=== PATIENT | female | born 2000 | race Two or more races ===

== ENCOUNTER 2024-07-15 11:12 | Emergency (ER) | payer MEDICAID, SELFPAY ==
[2024-07-15 11:39] VITALS: BP 138/70; PULSE 115; RESP 18; TEMP 36.8; O2SAT 97; BMI 45.9
--- NOTE | 2024-07-15 11:45 | CT_ITS ---
WS: [id number] CT ABDOMEN AND PELVIS WITH CONTRAST HISTORY: Abdominal pain with nausea, vomiting and diarrhea. TECHNIQUE: Imaging performed of the abdomen and pelvis with IV contrast. Single phase imaging of the abdomen. Coronal and sagittal reformats are submitted. All CT scans at [facility] use at [address] one of these dose optimization techniques: automated exposure control; mA and/or kV adjustment per patient size (includes targeted exams where dose is matched to clinical indication); or iterative re construction. IV CONTRAST: Omnipaque 350; 100 mL IV. Oral contrast: No DLP: 1348.43 mGy.cm COMPARISON: None available. Lower thorax: Lung bases are clear. Heart is normal size. No hiatal hernia. Liver/biliary system: Moderately enlarged liver with diffuse hepatic steatosis. Gallbladder: Normal. No gallstones or wall thickening. No pericholecystic fluid. Pancreas: Normal size pancreas and pancreatic duct. No adjacent inflammation. Spleen: Normal size spleen. No mass or infarct. Adrenal glands: Normal. Right kidney: Normal. Left kidney: Normal. Aorta: Normal. Lymphadenopathy: None. Free fluid: Small amount of free fluid in the pelvis. GI tract: Normal small bowel and stomach. Normal appendix. No colon obstruction. Abdominal wall: Unremarkable abdominal wall. No hernia. Pelvis: Small amount of free fluid in the pelvis. The uterus is midline and normal size. The RIGHT ov amish is enlarged with a peripherally enhancing crenulated corpus luteal cyst measuring 1.7 cm. There i s a soft tissue nodule noted deep within the pelvis in the presacral region measuring 2.3 x 1.7 cm of uncertain etiology. This is posterior to the rectum in the perirectal fat. This will need to be furt her evaluated. Possible etiologies are endometrioma or malignant deposit. No history of any prior mal ignancy this is not likely malignant. Bones: Unremarkable. CT/CT abdomen pelvis w con* [id number] IMPRESSION: 1. Normal appendix. 2. Mildly enlarged RIGHT ovary with collapsing, crenulated corpus luteal cyst. 3. There is a small amount of free fluid in the pelvis which is probably relat ed to a hemorrhagic cyst from the RIGHT ovary. 4. Hepatic steatosis. 5. There is a soft tissue nodule in the presacral soft tissues measuring 2.3 x 1.7 cm of uncertain etiology. No connection to the rectum is evident. Eric bear would include endometrioma or neoplastic deposit. No history of malignancy metastatic site or neoplastic deposit is not likely. Consider 3-month CT abdom en and pelvis follow-up with IV and oral contrast. If this nodule persists MRI may be necessary.
--- NOTE | 2024-07-15 11:49 | ED_ITS ---
HPI - Nausea/Vomiting/Diarrhea 2 General: Chief complaint: Nausea/Vomiting/Diarrhea Stated complaint: n,v,d Time Seen by Provider: 07/15/24 11:31 Source: patient Mode of arrival: ambulatory Limitations: no limitations History of Present Illness: 23-year-old female states that she was l ifting on Friday at work and felt a pulling sensation in her lower abdomen states that since she been having lower abdominal pain she has also had some vomiting and diarrhea patient denies any fevers she denies any worsening improving factors. Rates her pain a 6 out of 10 currently Associated nausea: Yes Associated symtoms: Reports nausea; Denies chest pain, dysuria or headache(s) Related Data Previous Rx's Medication Instructions Recorded hydrocodone 5 mg-acetaminophen 325 1 tab PO Q6H PRN pain #14 tabs 07/15/24 mg tablet ondansetron 4 mg disintegrating 4 mg PO Q6H PRN nausea and 07/15/24 tablet vomiting #14 tabs Allergies Allergy/AdvReac Type Severity Reaction Status Date / Time No Known Allergies Allergy Verified 07/15/24 11:42 Review of Systems 2 Const: Denies: fever(s), chills, body aches or change in appetite ENMT: Denies: throat pain or dental pain Card: Denies: chest pain Resp: Denies: dyspnea GI: Reports: abdominal pain, nausea, vomiting and diarrhea : Denies: dysuria Musc: Denies: neck pain or back pain Skin/Breast: Denies: rash Neuro: Denies: headache(s) Physical Exam 2 Const: COMMON NORMALS: no acute distress, patient oriented x3 and healthy appearing HENMT: COMMON NORMALS: normocephalic and atraumatic HEAD & SCALP: n ormocephalic and atraumatic Eye: COMMON NORMALS: conjunctivae normal CONJUNCTIVA: Yes conjunctivae normal Neck/C-Spine: COMMON NORMALS: full ROM and supple Chest: COMMONS NORMALS: normal inspection of the chest Resp: COMMON NORMALS: normal respiratory effort Cardio: COMMON NORMALS: regular rate, regular rhythm and No murmurs present (Cardio) RATE: regular rate RHYTHM: regular rhythm GI: COMMON NORMALS: Normal to inspection, nondistended, normoactive bowel sounds present, Soft to palpation and no masses PALPATION: Yes Soft to palpation OTHER: Lower abdominal tenderness noted Extremity: COMMON NORMALS: normal to inspection and full ROM Neuro: COMMON NORMALS: patient oriented x3, moves all extremities and no focal motor deficits Psych: COMMON NORMALS: mental status grossly normal, Normal thought process present and cooperative THOUGHT PROCESS: Normal thought process present Skin: COMMON NORMALS: no rashes or lesions noted and no wounds GENERAL SKIN EXAM: no rashes or lesions noted Course 2 Vital Signs: Vital signs: Vital Signs Temperature 98.3 F 07/15/24 11:39 Pulse Rate 95 07/15/24 14:19 Respiratory Rate 16 07/15/24 14:19 Blood Pressure 116/97 07/15/24 14:19 Pulse Oximetry 96 07/15/24 14:19 Oxygen Delivery Me thod Room Air 07/15/24 14:19 MDM - Nausea/Vomiting/Diarrhea Medical Decision Making Patient presents here with abdominal pain I did go over the findings with her ovarian cyst and a possible mass we will get her follow-up with OB she is much improved no pain currently no signs of ovarian torsion she is to follow-up with OB and return if worsening she understands agrees to plan Medical Records I reviewed the patient's medical records. Lab Data I reviewed the patient's lab results. 07/15/24 11:44 07/15/24 11:44 Radiology Impressions Abdomen/Pelvis CT 07/15/24 11:45 IMPRESSION: 1. Normal appendix. 2. Mildly enlarged RIGHT ovary with collapsing, crenulated corpus luteal cyst. 3. There is a small amount of free fluid in the pelvis which is probably related to a hemorrhagic cyst from the RIGHT ovary. 4. Hepatic steatosis. 5. There is a soft tissue nodule in the presacral soft tissues measuring 2.3 x 1.7 cm of uncertain etiology. No connection to the rectum is evident. Differential would include endometrioma or neoplastic deposit. No history of malignancy metastatic site or neoplastic deposit is not likely. Consider 3-month CT abdomen and pelvis follow-up with IV and oral contrast. If this nodule persists MRI may be necessary. Laboratory Results WBC 7.79 10^3/uL (3.29-11.43) 07/15/24 11:44 RBC 4.81 10^6/uL (3.85-5.65) 07/15/24 11:44 Hgb 15.00 g/dL (11.27-16.99) 07/15/24 11:44 Hct 44.4 % (36-47) 07/15/24 11:44 MCV 92.3 fl (85-98) 07/15/24 11:44 MCH 31.2 pg (27-33) 07/15/24 11:44 MCHC 33.8 g/dL (30-55) 07/15/24 11:44 RDW 12.8 % (12.1-15.1) 07/15/24 11:44 Plt Count 304 10^3/cmm (157-399) 07/15/24 11:44 MPV 9.3 fL (7.4-10.4) 07/15/24 11:44 Neut % (Auto) 72.9 % 07/15/24 11:44 Lymph % (Auto) 19.5 % 07/15/24 11:44 [place] % (Auto) 6.3 % 07/15/24 11:44 Eos % (Auto) 0.4 % 07/15/24 11:44 Baso % (Auto) 0.4 % 07/15/24 11:44 Neut # (Auto) 5.68 10^3/uL (1.8-7.7) 07/15/24 11:44 Lymph # (Auto) 1.5 10^3/uL (0.8-4.8) 07/15/24 11:44 [place] # (Auto) 0.5 10^3/uL (0.2-0.9) 07/15/24 11:44 Eos # (Auto) 0.0 10^3/uL (0.0-0.8) 07/15/24 11:44 Baso # (Auto) 0.0 10^3/uL (0.0-0.1) 07/15/24 11:44 Nucleated RBC % (auto) 0 % 07/15/24 11:44 Nucleated RBCs # 0.0 /100WBC 07/15/24 11:44 Sodium 135 mmol/L (136-145) L 07/15/24 11:44 Potassium 4.3 mmol/L (3.5-5.1) 07/15/24 11:44 Chloride 104 mmol/L (98-107) 07/15/24 11:44 Carbon Dioxide 19 mmol/L (22-29) L 07/15/24 11:44 Anion Gap 16.3 (5-19) 07/15/24 11:44 BUN 8 mg/dL (6-20) 07/15/24 11:44 Creatinine 0.6 mg/dL (0.5-0.9) 07/15/24 11:44 GFR Calculation 126.2 mL/min (90-130) 07/15/24 11:44 Glucose 99 mg/dL (65-115) 07/15/24 11:44 Calculated Osmolality 278 mOsm/kg (285-295) L 07/15/24 11:44 Calcium 9.5 mg/dL (8.5-10.5) 07/15/24 11:44 Total Bilirubin 0.5 mg/dL (0.15-1.2) 07/15/24 11:44 AST 73 U/L (0-32) H 07/15/24 11:44 ALT 79 U/L (0-33) H 07/15/24 11:44 Alkaline Phosphatase 113 U/L (35-105) H 07/15/24 11:44 Total Protein 8.0 g/dL (6.6-8.7) 07/15/24 11:44 Albumin 4.4 g/dL (3.5-5.2) 07/15/24 11:44 Globulin 3.6 g/dL (1.3-4.6) 07/15/24 11:44 Lipase 19 U/L (13-60) 07/15/24 11:44 HCG, Qual Negative (Negative) 07/15/24 11:44 Urine Color Yellow (Yellow) 07/15/24 12:24 Urine Appearance Cloudy (CLEAR) A 07/15/24 12:24 Urine pH 5.5 (5-7) 07/15/24 12:24 Ur Specific [place] 1.018 (1.005-1.030) 07/15/24 12:24 Urine Protein Negative (Negative) 07/15/24 12:24 Urine Glucose (UA) Negative (Normal) 07/15/24 12:24 Urine Ketones Negative (Negative) 07/15/24 12:24 Urine Blood Negative (Negative) 07/15/24 12:24 Urine Nitrate Negative (Negative) 07/15/24 12:24 Urine Bilirubin Negative (Negative) 07/15/24 12:24 Urine Urobilinogen 1.0 mg/dL (Negative) 07/15/24 12:24 Ur Leukocyte Esterase Negative (Negative) 07/15/24 12:24 Urine RBC Rare /hpf (0-2) 07/15/24 12:24 Urine WBC None /hpf (0-5) 07/15/24 12:24 Ur Squamous Epith Cells 10-15 /hpf (0-5) H 07/15/24 12:24 Amorphous Sediment Not Reportable 07/15/24 12:24 Urine Bacteria 1+ /hpf (NONE) H 07/15/24 12:24 Urine Mucus None /hpf 07/15/24 12:24 All radiology interpretation(s) finalized by discharge Discharge Plan Discharge Patient Disposition: Home Clinical Impression: Abdominal pain, Ovarian cyst Condition: Stable Prescriptions: New hydrocodone-acetaminophen 5-325 mg tablet 1 tab PO Q6H PRN (Reason: pain) Qty: 14 0RF ondansetron 4 mg tablet,disintegrating 4 mg PO Q6H PRN (Reason: nausea and vomiting) Qty: 14 0RF Discharge Orders: Discharge ED (Routine); Ordered 07/15/24 Ordered By: Uday Ryan Discharge Diet: Advance as tolerated Discharge Activity: Resume usual activity Patient Instructions: Ovarian Cyst (ED), Abdominal Pain (ED), Opioid Safety Coding Level of Care Code ED Welfare Adviser for Esthela Carlos
[2024-07-15 11:53] LABS: Basophils % 0.4 %; Eosinophils % 0.4 %; Hematocrit 44.4 % (36-47); Lymphocytes # 1.5 10^3/uL (0.8-4.8); Lymphocytes % 19.5 %; Mean Corpuscular HGB Conc 33.8 g/dL (30-55); Mean Corpuscular Hemoglobin 31.2 pg (27-33); Mean Corpuscular Volume 92.3 fl (85-98); Mean Platelet Volume 9.3 fL (7.4-10.4); Monocytes # 0.5 10^3/uL (0.2-0.9); Monocytes % 6.3 %; Neutrophils # 5.68 10^3/uL (1.8-7.7); Neutrophils % 72.9 %; Nucleated Red Blood Cells % 0 %; Platelet Count 304 10^3/cmm (157-399); Red Blood Count 4.81 10^6/uL (3.85-5.65); Red Cell Distribution Width 12.8 % (12.1-15.1); White Blood Count 7.79 10^3/uL (3.29-11.43)
[2024-07-15 12:04] LABS: HCG, Serum Qual Negative (Negative)
[2024-07-15 12:11] LABS: Alanine Aminotransferase 79 U/L (0-33); Albumin Level 4.4 g/dL (3.5-5.2); Alkaline Phosphatase 113 U/L (35-105); Anion Gap 16.3 (5-19); Aspartate Amino Transferase 73 U/L (0-32); Blood Urea Nitrogen 8 mg/dL (6-20); Calcium 9.5 mg/dL (8.5-10.5); Carbon Dioxide 19 mmol/L (22-29); Chloride 104 mmol/L (98-107); Creatinine Clr Calc Pharmacy 232.1767; Globulin 3.6 g/dL (1.3-4.6); Glomerular Filtration Rate 126.2 mL/min (90-130); Glucose 99 mg/dL (65-115); Lipase 19 U/L (13-60); Osmolality Calculated 278 mOsm/kg (285-295); Potassium 4.3 mmol/L (3.5-5.1); Sodium 135 mmol/L (136-145); Total Bilirubin 0.5 mg/dL (0.15-1.2)
[2024-07-15 12:25] VITALS: RESP 16
[2024-07-15] MEDS: morphine 4 mg/mL SDV 1 mL IVP (12:25)
[2024-07-15] MEDS: ondansetron 2 mg/ML SDV 2 mL 4 MG IVP (12:25)
[2024-07-15] MEDS: sodium chloride 0.9% 1,000 ML 999 ML IV (12:26)
[2024-07-15 12:34] VITALS: BP 162/108; PULSE 105; RESP 16; O2SAT 93
[2024-07-15 12:39] LABS: Bilirubin Urine Negative (Negative); Blood Urine Negative (Negative); Glucose Urine UA Negative (Normal); Ketones Urine Negative (Negative); Leukocyte Esterase Urine Negative (Negative); Nitrate Urine Negative (Negative); Protein Urine Negative (Negative); Specific Gravity, Urine 1.018 (1.005-1.030); Urine Appearance Cloudy (CLEAR); Urine Color Yellow (Yellow); pH Urine 5.5 (5-7)
[2024-07-15 13:15] LABS: UA Manual Slide Review YES; UA Slide Review UA Slide Review Perf
[2024-07-15] MEDS: iohexol 350 mg/mL 500 mL Btl (per mL) IV (13:17)
[2024-07-15 13:18] LABS: Add Urine Culture? No; Add Urine Microscopic? YES; Bacteria Urine 1+ /hpf; RBC Urine RARE /hpf (0-2)
[2024-07-15 14:19] VITALS: BP 116/97; PULSE 95; RESP 16; O2SAT 96
[2024-07-15] MEDS: sodium chloride 0.9% 1,000 ML 1000 ML IV (14:27)
[2024-07-15 15:02] VITALS: BP 117/81; PULSE 92; RESP 16; O2SAT 95
--- NOTE | 2024-07-16 04:41 | DCPLANNER ---
Message sent to DR. Overton's office for follow up.
== END 2024-07-15 15:04 | disposition home or self-care (01) ==
PROVIDERS: Emergency Provider Emergency Medicine
DX: N83.11 Corpus luteum cyst of right ovary (principal)
CPT/HCPCS: 36415; 74177; 80053; 81001; 83690; 84703; 85025; 96361; 96374; 96375; 99285; J2270; J2405; J7030

== ENCOUNTER 2024-09-06 12:23 | Emergency (ER) | payer OTHER, MEDICAID, SELFPAY ==
[2024-09-06 12:24] VITALS: BP 148/93; PULSE 89; RESP 22; TEMP 36.7; O2SAT 98
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
--- NOTE | 2024-09-06 13:03 | PC.PHAR ---
patient states she lost insurance 6 months or more ago, she 'thinks' that shes supposed to be on like 16 different meds or bipolar disorder and psych issues no records to go off of at this time
[2024-09-06 13:50] VITALS: PULSE 92; RESP 14; O2SAT 95
[2024-09-06 13:57] VITALS: BP 138/101; PULSE 96; O2SAT 98
== END 2024-09-06 14:01 | disposition home or self-care (01) ==
PROVIDERS: Emergency Provider Physician Assistant
DX: S39.012A Strain of muscle, fascia and tendon of lower back, initial encounter (principal); V89.2XXA Person injured in unspecified motor-vehicle accident, traffic, initial encounter
CPT/HCPCS: 72128; 73110; 99284

== ENCOUNTER 2024-09-20 11:26 | Emergency (ER) | payer OTHER, MEDICAID, SELFPAY ==
[2024-09-20 11:57] VITALS: BP 145/80; PULSE 98; RESP 16; O2SAT 97; BMI 47.3
--- NOTE | 2024-09-20 12:08 | W.ED.FEMALGU ---
HPI - Female Genitourinary General: Chief complaint: Vaginal Bleeding Stated complaint: bleeding,spotting, (unknown) Time Seen by Provider: 09/20/24 12:01 Source: patient Mode of arrival: ambulatory Limitations: no limitations History of Present Illness: Patient is a 23-year-old female presents to ED today along with her significant other wanting to determine whether she is or not. Patient states she had a home positive test approximately 2 days ago. She states she went to the resource center today and had a test they are which was negative. Patient states she began bleeding yesterday describing it as bright red. She states she did have a menstrual cycle last month. History of PCOS or cycles are not regular. She has not had any vaginal discharge, odor, new sexual partners, or concerns for STDs. She is not running fevers. Vital signs are stable upon arrival. MD elicited complaint: vaginal bleeding and possible miscarriage Onset (ago): day(s) Severity: mild Quality of pain: cramping Vaginal discharge: none Vaginal bleeding: moderate Exacerbating factors: none Relieving factors: none Associated symptoms: Reports no associated symptoms and abdominal pain (cramping); Deny nausea or vaginal discharge Sexual activity: Yes Possible : unsure if and at home test positive Related Data Home Medications Medication Instructions Recorded Confirmed No Known Home Medications 09/06/24 09/06/24 Allergies Allergy/AdvReac Type Severity Reaction Status Date / Time No Known Allergies Allergy Verified 07/15/24 11:42 Review of Systems Const: Denies: fever(s) Card: Denies: chest pain Resp: Denies: dyspnea GI: Reports: abdominal pain (cramping); Denies: nausea, vomiting or diarrhea : Reports: vaginal bleeding and pelvic pain (cramping); Denies: flank pain, difficulty voiding, dysuria, urinary frequency, urinary urgency, urinary hesitancy, hematuria, genital pruritis, vaginal odor or vaginal discharge Musc: Denies: back pain Skin/Breast: Denies: rash Neuro: Denies: dizziness Physical Exam Const: COMMON NORMALS: no acute distress, patient oriented x3 and alert GENERAL APPEARANCE: cooperative NUTRITIONAL APPEARANCE: obese morbidly obese (BMI 47.3) Eye: COMMON NORMALS: no scleral icterus Resp: COMMON NORMALS: normal respiratory effort and clear to auscultation bilaterally AUSCULTATION: clear to auscultation bilaterally Cardio: COMMON NORMALS: regular rate and regular rhythm RATE: regular rate RHYTHM: regular rhythm GI: COMMON NORMALS: Normal to inspection, nondistended, normoactive bowel sounds present, Soft to palpation, No hepatosplenomegaly present and no masses INSPECTION: Yes normal to inspection AUSCULTATION: Yes normoactive bowel sounds PALPATION: Yes Soft to palpation, Yes Tenderness to palpation present (GI) (mild diffuse tenderness mainly across lower abdomen/pelvis-non surgical), No Guarding due to palpation present (GI), No Rigid due to palpation and Yes No hepatosplenomegaly present : COMMON NORMALS: Yes no CVA tenderness BLADDER/KIDNEY EXAM: Yes no CVA tenderness OTHER: deferred Back/Pelvis: COMMON NORMALS: no CVA tenderness and thoracic and lumbar spine normal to inspection Extremity: GENERAL: Yes normal exam except as noted Neuro: COMMON NORMALS: patient oriented x3, moves all extremities, no focal motor deficits, no sensory deficits noted and gait normal SENSORIUM/ORIENTATION: Yes alert Skin: COMMON NORMALS: no rashes or lesions noted GENERAL SKIN EXAM: no rashes or lesions noted Course Vital Signs: Vital signs: Vital Signs Pulse Rate 98 09/20/24 11:57 Respiratory Rate 16 09/20/24 11:57 Blood Pressure 145/80 09/20/24 11:57 Pulse Oximetry 97 09/20/24 11:57 Oxygen Delivery Me thod Room Air 09/20/24 11:57 MDM - Female Medical Decision Making Patient's hCG quant is 1.0. CBC is unremarkable. Vaginal bleeding most likely secondary to normal menstrual cycle. She will be allowed discharge with return precautions. Medical Records I reviewed the patient's medical records. Lab Data I reviewed the patient's lab results. 09/20/24 12:41 Laboratory Results WBC 10.80 10^3/uL (3.29-11.43) 09/20/24 12:41 RBC 4.84 10^6/uL (3.85-5.65) 09/20/24 12:41 Hgb 14.40 g/dL (11.27-16.99) 09/20/24 12:41 Hct 43.4 % (36-47) 09/20/24 12:41 MCV 89.7 fl (85-98) 09/20/24 12:41 MCH 29.8 pg (27-33) 09/20/24 12:41 MCHC 33.2 g/dL (30-55) 09/20/24 12:41 RDW 12.3 % (12.1-15.1) 09/20/24 12:41 Plt Count 389 10^3/cmm (157-399) 09/20/24 12:41 MPV 9.2 fL (7.4-10.4) 09/20/24 12:41 Neut % (Auto) 49.2 % 09/20/24 12:41 Lymph % (Auto) 42.6 % 09/20/24 12:41 W[place]er % (Auto) 6.3 % 09/20/24 12:41 Eos % (Auto) 0.9 % 09/20/24 12:41 Baso % (Auto) 0.4 % 09/20/24 12:41 Neut # (Auto) 5.32 10^3/uL (1.8-7.7) 09/20/24 12:41 Lymph # (Auto) 4.6 10^3/uL (0.8-4.8) 09/20/24 12:41 W[place]er # (Auto) 0.7 10^3/uL (0.2-0.9) 09/20/24 12:41 Eos # (Auto) 0.1 10^3/uL (0.0-0.8) 09/20/24 12:41 Baso # (Auto) 0.0 10^3/uL (0.0-0.1) 09/20/24 12:41 Nucleated RBC % (auto) 0 % 09/20/24 12:41 Nucleated RBCs # 0.0 /100WBC 09/20/24 12:41 Ser , Semi-Qnt 1.00 mIU/mL 09/20/24 12:41 Blood Type A Positive 09/20/24 12:41 Rho(D) Type Rh positive 09/20/24 12:41 Antibody Screen Negative 09/20/24 12:41 No radiology studies performed this visit Discharge Plan Discharge Patient Disposition: Home Clinical Impression: Vaginal bleeding Condition: Stable Prescriptions: No Action No Known Home Medications Discharge Orders: Discharge ED (Routine); Ordered 09/20/24 Ordered By: Soledad Pimentel Activity Restrictions/Additional Instructions: As we discussed, your hCG was negative meaning you are not . Vaginal bleeding most likely due to normal menstrual cycle. Coding Level of Care Code ED Clinical Transplant Coordinator for Esthela Carlos
[2024-09-20 12:52] LABS: Basophils % 0.4 %; Eosinophils # 0.1 10^3/uL (0.0-0.8); Eosinophils % 0.9 %; Hematocrit 43.4 % (36-47); Lymphocytes # 4.6 10^3/uL (0.8-4.8); Lymphocytes % 42.6 %; Mean Corpuscular HGB Conc 33.2 g/dL (30-55); Mean Corpuscular Hemoglobin 29.8 pg (27-33); Mean Corpuscular Volume 89.7 fl (85-98); Mean Platelet Volume 9.2 fL (7.4-10.4); Monocytes # 0.7 10^3/uL (0.2-0.9); Monocytes % 6.3 %; Neutrophils # 5.32 10^3/uL (1.8-7.7); Neutrophils % 49.2 %; Nucleated Red Blood Cells % 0 %; Platelet Count 389 10^3/cmm (157-399); Red Blood Count 4.84 10^6/uL (3.85-5.65); Red Cell Distribution Width 12.3 % (12.1-15.1)
== END 2024-09-20 13:36 | disposition home or self-care (01) ==
PROVIDERS: Emergency Medicine; Emergency Provider Physician Assistant
DX: N93.9 Abnormal uterine and vaginal bleeding, unspecified (principal)
CPT/HCPCS: 36415; 84702; 85025; 86850; 86900; 99283

== ENCOUNTER → 2024-09-23 10:06 | Outpatient (BNVA) | payer MEDICAID, SELFPAY | PROVIDERS: Visit Provider Nurse Practitioner Family | DX: R05.9 Cough, unspecified (principal) | CPT/HCPCS: 87426 ==

== ENCOUNTER → 2024-12-13 15:09 | Outpatient (BNVA) | payer MEDICAID, SELFPAY | PROVIDERS: Visit Provider Registered Nurse Neonatal Intensive Care | DX: Z20.2 Contact with and (suspected) exposure to infections with a predominantly sexual mode of transmission (principal) | CPT/HCPCS: 87491; 87591; 87661 ==

== ENCOUNTER → 2025-09-05 14:24 | Outpatient (BNVA) | payer MEDICAID, SELFPAY | PROVIDERS: PCP Family Medicine; Visit Provider Family Medicine | DX: E11.9 Type 2 diabetes mellitus without complications (principal); E03.9 Hypothyroidism, unspecified; F32.A Depression, unspecified; E66.9 Obesity, unspecified; Z91.51 Personal history of suicidal behavior | CPT/HCPCS: 80053; 80061; 83036; 83690; 84443; 85025 ==